=== PATIENT | female | born 1970 | race Caucasian/White ===

== ENCOUNTER 2016-12-18 14:24 | Day surgery (SDC) | payer OTHER ==
[~2016-12-18] VITALS: Ht 177.8 cm; Wt 64.5 kg
[~2016-12-18 14:24] MED LIST: ANTIVERT 12.512.5 MG PO; ELITE MAGNESIUM1 TAB PO; VALIUM 5MG T5 MG/TAB PO; VIT D
[2016-12-18 14:45] VITALS: BP 128/80; PULSE 91; TEMP 97.6
[2016-12-18] MEDS ORDERED: FLORAJEN BIFIDO1 CAP PO (14:59)
[2016-12-18] MEDS ORDERED: NATURAL MAGNES200 MG PO (15:00)
[2016-12-18] MEDS ORDERED: VITAMIN D1000 IU PO (15:01)
[2016-12-18] MEDS ORDERED: ECHINACEA PURPU80 MG PO (15:02)
[2016-12-18 15:03] VITALS: BP 128/80; PULSE 91; TEMP 97.6
[2016-12-18] MEDS ORDERED: VTAMINC250TA (15:03)
[2016-12-18 16:02] VITALS: BP 115/68; PULSE 72; TEMP 98.1
[2016-12-18 16:15] VITALS: BP 108/77; PULSE 75
[2016-12-18 16:30] VITALS: BP 115/70; PULSE 76
== END 2016-12-18 17:00 | disposition home or self-care (01) ==
LOC: SDCO 14:24
DX: R19.4 Change in bowel habit (principal); R19.7 Diarrhea, unspecified; A04.7 Enterocolitis due to Clostridium difficile
CPT/HCPCS: J2250; J3010; J7030

== ENCOUNTER → 2021-03-03 | Outpatient (CLI) | payer OTHER ==
[~2021-03-03] MED LIST changes: +ECHINACEA PURPU80 MG PO; +FLORAJEN BIFIDO1 CAP PO; +NATURAL MAGNES200 MG PO; +VITAMIN D1000 IU PO; +VTAMINC250TA
== END ==
LOC: COL.RAD 15:19
DX: M25.441 Effusion, right hand (principal)

== ENCOUNTER → 2021-03-25 | Outpatient (CLI) | payer OTHER | LOC: MC.RAD 14:23 | DX: Z12.31 Encounter for screening mammogram for malignant neoplasm of breast (principal); N64.89 Other specified disorders of breast ==

== ENCOUNTER → 2021-04-03 | Outpatient (CLI) | payer OTHER | LOC: MC.RAD 14:00 | DX: N64.9 Disorder of breast, unspecified (principal); N64.89 Other specified disorders of breast; N63.20 Unspecified lump in the left breast, unspecified quadrant; N63.10 Unspecified lump in the right breast, unspecified quadrant ==

== ENCOUNTER → 2021-10-23 | Outpatient (CLI) | payer OTHER | LOC: MC.RAD 10-13 09:00 | DX: N63.20 Unspecified lump in the left breast, unspecified quadrant (principal); N63.10 Unspecified lump in the right breast, unspecified quadrant ==

== ENCOUNTER → 2022-07-09 | Outpatient (CLI) | payer OTHER | LOC: MC.RAD 13:00 | DX: N63.10 Unspecified lump in the right breast, unspecified quadrant (principal); N63.20 Unspecified lump in the left breast, unspecified quadrant ==